=== PATIENT | male | born 1965 | race Caucasian/White ===

== ENCOUNTER 2018-02-13 06:56 | Inpatient (IN) | payer OTHER ==
[2018-02-13] VITALS (14 sets, daily range): BP systolic 132–154; BP diastolic 87–113
[~2018-02-13] VITALS: Ht 180.3 cm; Wt 78.5 kg
--- NOTE | ~2018-02-13 | EKG ---
[address] [place] [address] ELECTROCARDIOGRAM REPORT Name: ILANA BARNARD Room #: 243-P ADM IN M.R.#: [id number] Admission: 02/13/18 Attend Phys: Juno Lopez MD Discharge: Date of : 61 Report #: [id number] THIS REPORT FOR: //name// [facility] ED Test Date: 2018-02-13 Test Time: 06:56:30 Pat Name: ILANA BARNARD Department: Room: Gender: M Audio Visual Manager: [facility] : 1965 Requested By: Romeo Varghese Order Number: [id number] MD: Leon Sandoval Measurements Intervals [place] Rate: 58 P: 42 NC: 171 QRS: 71 QRSD: 126 T: 97 QT: 426 QTc: 419 Interpretive Statements Sinus rhythm Multiple premature complexes, vent & supraven Inferior infarct, acute Compared to ECG 08/24/2001 18:25:22 Ventricular and supraventricular ectopy are present Myocardial infarct finding now present Electronically Signed On 02-14-2018 8:45:41 CDT by Leon Sandoval [email or web address] <ELECTRONICALLY SIGNED> By: Leon Sandoval MD, [facility] 02/14/18 0845 0656 0656 Leon Sandoval MD, [facility] /EPI
--- NOTE | ~2018-02-13 | D ---
[facility] [place] [address] DISCHARGE SUMMARY Name: ILANA BARNARD JR Room #: 208-P [facility] IN M.R.#: [id number] Admission: 02/13/18 Attend Phys: Juno Lopez MD Discharge: 02/15/18 Date of : 61 Report #: [id number] THIS REPORT FOR: //name// CC: SADIA physician/PCP Juno Lopez DATE OF SERVICE: 02/13/2018 FINAL DIAGNOSES: 1. Acute inferior wall myocardial infarction, status post coronary intervention. 2. Atrial fibrillation. 3. Noncompliance. 4. Ischemic cardiomyopathy. 5. Hypertension. 6. Tobacco use. 7. Hypercholesterolemia. HOSPITAL COURSE: The patient presented with an acute inferior wall myocardial infarction. He was taken emergently to the cardiac tailings dam laborer. He was found to have a total occlusion in a stent that was in the mid segment of the RCA. Angioplasty was performed with placement of a drug-eluting stent with protestant of ROSA MARIA 3 blood flow down the RCA and PDA. The PDA had an ostial lesion that was intervened on with a balloon angioplasty. The left circumflex is chronically occluded with distal collaterals. This is unchanged from prior studies. There is a stent in the mid LAD that is patent. The proximal LAD had a borderline stenosis. During the procedure, the rhythm changed to atrial fibrillation, he remained hemodynamically stable. He was transferred to the ICU. He was started on amiodarone as per protocol. However, the rhythm persisted. He did not have any further episodes of chest pains. He has a prior history of stent placement at [facility] and [facility]. However, he has not been compliant with followups or taking any medications. He has a history of tobacco use, hypertension and hypercholesterolemia. He remained stable on the medical floor with no symptoms of angina or dyspnea. His EF was in the 35%-40% range. He was started on losartan. He also was given a nicotine patch as he is trying to quit smoking. FINAL DISPOSITION: Eliquis 5 mg twice a day, aspirin 81 mg, Plavix 75 mg daily, [facility] [address] [place] [address] DISCHARGE SUMMARY Name: AKILILANA RUEL Room #: 208-P [facility] IN M.R.#: [id number] Admission: 02/13/18 Attend Phys: Juno Lopez MD Discharge: 02/15/18 Date of : 61 Report #: [id number] atenolol 50 mg twice a day, losartan 25 mg daily, and atorvastatin 40 mg daily. He is given instructions for followup in the office within a week. <ELECTRONICALLY SIGNED> By: Juno Lopez MD 02/16/18 0812 0950 1025 Juno Lopez MD /nt
--- NOTE | ~2018-02-13 | EKG ---
[address] [address] ELECTROCARDIOGRAM REPORT Name: AKILILANA Room #: 208-P [facility] IN M.R.#: [id number] Admission: 02/13/18 Attend Phys: Juno Lopez MD Discharge: 02/15/18 Date of : 61 Report #: [id number] THIS REPORT FOR: //name// [facility] Test Date: 2018-02-15 Test Time: 08:40:43 Pat Name: ILANA BARNARD Department: Room: 208 Gender: M Marketing Executive: VANDANA : 1965 Requested By: Juno Lopez Order Number: [id number] MD: Juno Lopez Measurements Intervals [place] Rate: 101 P: HI: QRS: 40 QRSD: 114 T: -63 QT: 382 QTc: 496 Interpretive Statements Atrial fibrillation Inferior infarct, age indeterminate Compared to ECG 02/14/2018 08:25:47 Left ventricular hypertrophy no longer present Prolonged QT interval no longer present Myocardial infarct finding still present Electronically Signed On 02-16-2018 10:18:53 ELECTROCARDIOGRAPHIC TECHNICIAN by Juno Lopez [email or web address] <ELECTRONICALLY SIGNED> By: Juno Lopez MD 02/16/18 1018 9 9 Juno Lopez MD /MAYITO
--- NOTE | ~2018-02-13 | CATHLAB ---
[facility] [place] [address] INVASIVE PROCEDURE REPORT Name: ILANA BARNARD Room #: 243-P ADM IN .R.#: [id number] Admission: 02/13/18 Attend Phys: Juno Lopez MD Discharge: Date of : 61 Date of Service: 02/13/18 1031 Report #: [id number] THIS REPORT FOR: //name// APPROVED REPORT Study performed: 02/13/2018 07:24:47 Patient Details Patient Status: ED Room #: The patient is a 53 year-old male Event Personnel Juno Lopez,Correctional Supervising Cook, , Brock Wilhelm RN RN, Yemi Bill RN, Jose Gerber, Lizzette Chambers Monitor Procedures Performed Art Access - R femoral artery* SKYLER Revasc AMI Total/Sub Single RCA C9606 AMIREVSING Left Heart Cath w/or w/o Coronaries [id number] [facility] [address] Initial Mod Sed Same Phys/QHP Gr5y 692276 16321 Mod Sed Same Phys/QHP Ea 095703 Indication STEMI (>0 to less than or equal to 6 hours), Dyspnea, Chest pain Risk Factors Hypercholesterolemia, Coronary Artery DiseaseHypertension, Tobacco History (), The patient was noncompliant with medical therapy. Previous Procedures/Diagnoses Previous PCI Procedure Narrative The Right Groin^ was infiltrated with subcutaneous anesthesia. A PINNACLE 6FR Sheath #[id number] sheath was inserted into the RFA^. Coronary angiography was performed using coronary diagnostic catheters. The right coronary system was accessed and visualized with a jr4 catheter. The left coronary system was accessed and visualized with a jl4 catheter. The left ventricle was accessed and visualized with a angle pig catheter. Left ventriculogram was performed in 30 degree projection. sheath was suttured in place, patient transfered to icu Intraoperative Conscious Sedation [address] [address] INVASIVE PROCEDURE REPORT Name: ILANA BARNARD JR Room #: 243-P [facility] IN ..#: [id number] Admission: 02/13/18 Attend Phys: Juno Lopez MD Discharge: Date of : 61 Date of Service: 02/13/18 1031 Report #: [id number] Sedation start time: 0759 Case end Time: 0830 Fluoro Time: 13.00 minutes Dose: DAP 38254.80 cGycm2 1885 mGy Coronary Angiography The patient's coronary anatomy is right dominant. Diagnostic Cath Left Main Patent vessel, with no flow-limiting lesions. LAD Moderate size caliber vessel, traveling down the anterior wall and wrapping around the apex. There is a stent in the midsegment, patent with minimal restenosis. In the proximal segment, there is a severe focal stenosis, 70%. Diagonal 1 Small-caliber vessel, with no flow-limiting lesions. Diagonal 2 Small-caliber vessel, with no flow-limiting lesions. Circumflex After supplying OM1, there is a total occlusion in the mid segment. The distal marginal is filled via collateral circulation from OM1. OM1 Small to moderate size caliber vessel, patent with no flow-limiting lesions. Supplies collateral circulation to the distal marginal. OM2 Filled via collateral blood flow from OM1. Right Coronary Dominant vessel with a stent in the mid/distal segment with 100% occlusion. Left Ventriculography The left ventricle is mildly dilated in size with decreased contractility. The left ventricular ejection fraction is estimated to be 35-40%. Left ventricular wall motion abnormalities are present. There is hypokinesis of the inferior wall. Hemodynamics The aortic pressure is 183/111 mmHg with a mean of 117 mmHg. The left ventricular pressure is 149/22 mmHg with a mean of mmHg. The left ventricular end diastolic pressure is 31 mmHg. PCI Technique Lesion Percutaneous coronary intervention was performed on the mid right coronary artery. The lesion stenosis prior to intervention was 100% with ROSAM ARIA 0 flow. A jr4 Guide Catheter was used to engage the ostium. A Luge Wire (J) .014 X 182CM #[id number] Interventional Guidewire was used to cross the lesion. [facility] [address] [place] [address] INVASIVE PROCEDURE REPORT Name: ILANA BARNARD Room #: 243-P [facility] IN M.R.#: [id number] Admission: 02/13/18 Attend Phys: Juno Lopez MD Discharge: Date of : 61 Date of Service: 02/13/18 1031 Report #: [id number] BALLOON DILATION A Balloon catheter 2.5x12 Euphora was inserted and inflated up to 8atm for 6seconds. Additional Inflation: 6.00atm for 6seconds. Additional Inflation: 10.00atm for 12seconds. addl. 10atm for 8 sec. Did post injections, went back in with the 2.5x12: 10atm for 12 sec, 14atm for 18 sec. STENT DEPLOYMENT A stent 3.0x15 Resolute gokul skyler stent was inserted and inflated up to 16.00atm for 25seconds. POST STENT DEPLOYMENT BALLOON DILATION A Balloon catheter 3.5x12 NC TREK was inserted and inflated up to 18atm for 20seconds. Final angiography reveals 5 % stenosis with ROSA MARIA 3 flow. COMMENTS 1. During the initial balloon angioplasty, the patient's rhythm changed from sinus to A. fib ablation. He remained hemodynamically stable and was started on amiodarone. 2. After the initial stent deployment, repeat injections revealed a haziness within the stented area. Partly due to an undersized stent that was previously placed. The patient was started on Integrilin at this time. The stent was postdilated with a 3.5 mm noncompliant balloon, up to 18 jesus manuel. After the balloon dilatation, there was no further evidence for thrombus within the stented area. PCI Technique Lesion 2 Percutaneous Coronary Intervention was performed on the right posterior descending artery. The lesion stenosis prior to intervention was 80% with ROSA MARIA 3 flow. Balloon Dilation A Balloon catheter 2.5X12 EUPHORA RX was inserted and inflated up to 8atm for 30seconds. Final angiography reveals 40 % stenosis with ROSA MARIA 3 flow. Conclusion 1. Successful insertion of a drug-eluting stent into the total occlusion in the mid RCA segment, at the site of a previously placed stent. 2. Balloon angioplasty of an ostial PDA stenosis. 3. Patent stent in the mid LAD. There is a 70% stenosis in the [facility] [address] [place] [address] INVASIVE PROCEDURE REPORT Name: ILANA BARNARD JR Room #: 243-P [facility] IN .R.#: [id number] Admission: 02/13/18 Attend Phys: Juno Lopez MD Discharge: Date of : 61 Date of Service: 02/13/18 103 Report #: [id number] proximal LAD segment, consider a staged angioplasty. 4. Total occlusion of the mid left circumflex artery, the distal marginal is filled via collateral circulation. Recommend medical therapy. 5. Moderate ischemic cardiomyopathy. 6. Atrial fibrillation, continue with medical therapy. 7. Recommend dual antiplatelet therapy and aggressive risk factor modification. <ELECTRONICALLY SIGNED> By: Juno Lopez MD 02/13/181030 30 30 Juno Lopez MD /INF
--- NOTE | ~2018-02-13 | H ---
[facility] [place] [address] HISTORY AND PHYSICAL Name: ILANA BARNARD JR Room #: 243-P ADM IN M.R.#: [id number] Admission: 02/13/18 Attend Phys: Juno Lopez MD Discharge: Date of : 61 Report #: [id number] THIS REPORT FOR: //name// CC: SADIA physician/PCP Juno Lopez DATE OF SERVICE: 02/13/2018 INDICATION: Chest pain. HISTORY OF PRESENT ILLNESS: This is a 53-year-old gentleman with a history of CAD, PCI, hypertension, tobacco use, presenting with chest pains. About an hour prior to his presentation, he developed substernal chest pain, radiating down the left arm. He has some dyspnea. There is no history of cough, nausea or diaphoresis. In the ER, he was found to have an acute inferior wall AR. He has not been taking any medication for the past 6 months to 1 year. He has not followed up with his highway commissioner. PAST MEDICAL HISTORY: CAD with stent placement at [facility] and then several years ago at [facility]. History of hypertension, hypercholesterolemia. History of noncompliance. ALLERGIES: None. MEDICATIONS: None. SOCIAL HISTORY: Positive tobacco use, at least 1 pack per day. FAMILY HISTORY: Negative for premature CAD. REVIEW OF SYSTEMS: As outlined above in the HPI. PHYSICAL EXAMINATION: VITAL SIGNS: Blood pressure is 150/60, heart rate is 80 beats per minute. GENERAL APPEARANCE: This is a well-developed, well-nourished male in no respiratory distress. HEENT: Normocephalic, atraumatic. Oral mucosa moist. NECK: Supple. LUNGS: CTA. CARDIAC: Regular rate and rhythm, S1, S2 positive. ABDOMEN: Soft, nontender. EXTREMITIES: No cyanosis, no edema. NEUROLOGIC: Alert and oriented x 3. ECG reveals sinus rhythm, ST elevation in the inferior leads with reciprocal ST depressions in the lateral leads. [facility] [address] [place] [address] HISTORY AND PHYSICAL Name: ILANA BARNARD Room #: 243-P [facility] IN [facility].#: [id number] Admission: 02/13/18 Attend Phys: Juno Lopez MD Discharge: Date of : 61 Report #: [id number] ASSESSMENT AND PLAN: 1. Acute inferior wall myocardial infarction, the patient will be taken emergently to the cardiac labor trainer. He will be given aspirin and antiplatelet therapy. 2. Noncompliance, discussed with him the importance of compliance with medications, especially with his significant cardiac history. 3. Hypertension, reinstitute blood pressure medications. 4. Tobacco use, complete smoking cessation is advised. 5. Hypercholesterolemia, resume statin therapy. <ELECTRONICALLY SIGNED> By: Juno Lopez MD 02/14/18 0805 0836 0923 Juno Lopez MD /nt
--- NOTE | ~2018-02-13 | EKG ---
[address] [address] ELECTROCARDIOGRAM REPORT Name: ILANA BARNARD Room #: 243-P ADM IN M.R.#: [id number] Admission: 02/13/18 Attend Phys: Juno Lopez MD Discharge: Date of : 61 Report #: [id number] THIS REPORT FOR: //name// [facility] Test Date: 2018-02-14 Test Time: 08:25:47 Pat Name: ILANA BARNARD Department: Room: 243 P Gender: M Broth Setter: GR : 1965 Requested By: Juno Lopez Order Number: [id number] MD: Leon Sandoval Measurements Intervals [place] Rate: 112 P: NM: QRS: 33 QRSD: 104 T: -62 QT: 368 QTc: 503 Interpretive Statements Atrial fibrillation Left ventricular hypertrophy Inferoposterior infarct, recent Prolonged QT interval Compared to ECG 08/24/2001 18:25:22 Evolutionary changes of an inferior infarct Electronically Signed On 02-14-2018 9:04:56 CDT by Leon Sandoval [email or web address] <ELECTRONICALLY SIGNED> By: Leon Sandoval MD, [facility] 02/14/18 0904 4 4 Leon Sandoval MD, [facility] /EPI
[2018-02-13] MEDS ORDERED: NOHOMEMEDICATIONS (07:09)
[2018-02-13 07:11] LABS: ABSOLUTE NEUTROPHILS 5.8 thou/uL (1.4-8.2); BASOPHILS 1.1 % (0.0-2.0); EOSINOPHILS 2.9 % (0.0-3.0); HEMATOCRIT 45.7 % (42.0-52.0); HEMOGLOBIN 15.7 gm/dL (14.0-18.0); LYMPHOCYTES 35.6 % (24.0-44.0); MCH 31.4 pg (26.0-34.0); MCHC 34.3 g/dL (28.0-37.0); MCV 91.4 fL (80.0-100.0); MONOCYTES 10.3 % (1.0-8.0); PLATELET COUNT 340 thou/uL (150-400); POLYS 50.1 % (36.0-66.0); RDW 14.5 % (10.5-14.5); WBC 11.5 thou/uL (4.0-11.0)
[2018-02-13 07:24] LABS: ANION GAP 14 mmol/L (7-16); BUN 16 mg/dL (7-18); CALCIUM 9.6 mg/dL (8.5-10.1); CHLORIDE 103 mmol/L (98-107); CO2 23 mmol/L (21-32); CREATININE 1.2 mg/dL (0.7-1.3); GLUCOSE 157 mg/dL (74-106); POTASSIUM 3.5 mmol/L (3.5-5.1); SODIUM 140 mmol/L (136-145)
[2018-02-13 07:34] LABS: TROPONIN-I <0.06 ng/mL (<0.06)
[2018-02-14] VITALS (7 sets, daily range): BP systolic 106–127; BP diastolic 68–88
[2018-02-14 05:06] LABS: HEMATOCRIT 40.7 % (42.0-52.0); HEMOGLOBIN 13.8 gm/dL (14.0-18.0); MCH 30.9 pg (26.0-34.0); RBC 4.48 mil/uL (4.50-6.00); RDW 14.5 % (10.5-14.5); WBC 10.2 thou/uL (4.0-11.0)
[2018-02-14 05:14] LABS: CALCIUM 8.9 mg/dL (8.5-10.1); POTASSIUM 4.2 mmol/L (3.5-5.1)
[2018-02-14 05:22] LABS: ALBUMIN 2.7 g/dL (3.4-5.0); TOTAL BILIRUBIN 0.4 mg/dL (<0.1-1.0); TOTAL PROTEIN 6.2 g/dL (6.4-8.2)
[2018-02-14 05:26] LABS: TROPONIN-I 55.39 ng/mL (<0.06)
[2018-02-15 00:05] VITALS: BP 101/79
[2018-02-15 04:18] VITALS: BP 112/86
[2018-02-15 05:28] LABS: CALCIUM 8.8 mg/dL (8.5-10.1)
[2018-02-15 07:44] VITALS: BP 108/70
[2018-02-15] MEDS ORDERED: NICOTINE TRANSD21 M1 TRANSDERM (09:37)
[2018-02-15] MEDS ORDERED: ELIQUIS5 MG PO (09:38)
[2018-02-15] MEDS ORDERED: CLOPIDOGREL75 MG PO (09:38)
[2018-02-15] MEDS ORDERED: ATENOLOL 50MG T50 MG PO (09:39)
[2018-02-15] MEDS ORDERED: ATORVASTATIN CA80 MG PO (09:39)
[2018-02-15] MEDS ORDERED: COZAAR 25 MG TA25 M1 PO (09:39)
[2018-02-15] MEDS ORDERED: ASPIR 8181 MG PO (09:40)
[2018-02-15 10:42] VITALS: BP 108/70
== END 2018-02-15 11:34 | disposition home or self-care (01) | DRG 247 ==
LOC: ER 06:56 → ICU 09:03 → 2N 02-14 16:45
PROVIDERS: Emergency Medicine; Internal Medicine Cardiovascular Disease
DX: I21.19 ST elevation (STEMI) myocardial infarction involving other coronary artery of inferior wall (principal); F17.210 Nicotine dependence, cigarettes, uncomplicated; I48.91 Unspecified atrial fibrillation; I25.5 Ischemic cardiomyopathy; I10 Essential (primary) hypertension; I25.10 Atherosclerotic heart disease of native coronary artery without angina pectoris; E78.00 Pure hypercholesterolemia, unspecified; Z95.5 Presence of coronary angioplasty implant and graft; Z82.49 Family history of ischemic heart disease and other diseases of the circulatory system; Z91.14 Patient's other noncompliance with medication regimen; Z79.82 Long term (current) use of aspirin; Z79.899 Other long term (current) drug therapy; Z28.21 Immunization not carried out because of patient refusal
CPT/HCPCS: 10078; 10081

== ENCOUNTER 2018-05-01 07:50 | Outpatient (CLI) | payer OTHER ==
[~2018-05-01] VITALS: Ht 180.3 cm; Wt 78.0 kg
[~2018-05-01 07:50] MED LIST: ASPIR 8181 MG PO; ATENOLOL 50MG T50 MG PO; ATORVASTATIN CA80 MG PO; CLOPIDOGREL75 MG PO; COZAAR 25 MG TA25 M1 PO; ELIQUIS5 MG PO; NICOTINE TRANSD21 M1 TRANSDERM; NOHOMEMEDICATIONS
[2018-05-01 08:03] VITALS: BP 132/77
[2018-05-01 08:20] LABS: HEMATOCRIT 42.4 % (42.0-52.0); HEMOGLOBIN 14.2 gm/dL (14.0-18.0); MCH 30.4 pg (26.0-34.0); MCHC 33.6 g/dL (28.0-37.0); MCV 90.7 fL (80.0-100.0); RBC 4.68 mil/uL (4.50-6.00); RDW 14.6 % (10.5-14.5); WBC 5.3 thou/uL (4.0-11.0)
[2018-05-01] MEDS ORDERED: TOPROL XL100 MG PO (08:21)
--- NOTE | 2018-05-01 08:25 | EKG ---
[address] [address] ELECTROCARDIOGRAM REPORT Name: ILANA BARNARD Room #: REG CLI [facility].#: [id number] Admission: 05/01/18 Attend Phys: Juno Lopez MD Discharge: Date of : 61 Report #: [id number] THIS REPORT FOR: //name// [facility] Test Date: 2018-05-01 Test Time: 08:08:34 Pat Name: ILANA BARNARD Department: Room: Gender: M Product Consultant: : 1965 Requested By: Juno Lopez Order Number: [id number] MD: Leon Sandoval Measurements Intervals [place] Rate: 58 P: 54 CO: 147 QRS: 29 QRSD: 101 T: -22 QT: 409 QTc: 402 Interpretive Statements Sinus bradycardia Inferior infarct, age indeterminate Compared to ECG 02/15/2018 08:40:43 Atrial fibrillation no longer present Electronically Signed On 05-01-2018 8:25:28 COAT CHECK ATTENDANT by Leon Sandoval [email or web address] <ELECTRONICALLY SIGNED> By: Leon Sandoval MD, [facility] 05/01/18 0825 0808 7 Leon Sandoval MD, [facility] /EPI
[2018-05-01 08:27] LABS: CALCIUM 9.4 mg/dL (8.5-10.1); POTASSIUM 4.3 mmol/L (3.5-5.1)
[2018-05-01 08:33] LABS: PROTIME 10.5 Seconds (9.3-11.4)
--- NOTE | 2018-05-01 16:02 | NUR ---
PT TO THE UNIT POST CARDIAC CATH, PATIENT HAD STENT TO MID LAD. VSS AND GROIN SITE STABLE - PT OFF BEDREST AND IS SITTING ON SIDE OF BED AND GROIN REMAINS STABLE. NO CO'S OF PAIN OR NAUSEA. JULIA DIET AND FLUIDS. WILL BE SEEN BY CARDIAC REHAB IN THE AM . AT THE BEDSIDE - NO CO'S AT THE PRESENT TIME.
--- NOTE | 2018-05-01 16:13 | CATHLAB ---
[facility] [place] [address] INVASIVE PROCEDURE REPORT Name: AKILILANA RUEL FERNANDEZ Room #: 201-P [facility] [id number] Admission: 05/01/18 Attend Phys: Juno Lopez MD Discharge: Date of : 61 Date of Service: 05/01/18 1613 Report #: [id number] THIS REPORT FOR: //name// APPROVED REPORT Study performed: 05/01/2018 09:14:22 Patient Details Patient Status: Out-Patient Room #: The patient is a 53 year-old male Event Personnel uJno Lopez Consulting Database Administrator, Latonia Nino RN RN, Monica Dahl Sandifer, David Monitor Procedures Performed Left Heart Cath w/or w/o Coronaries [id number] [facility] Place w/wo Plasty Single LAD 027029 Indication Dyspnea, Chest pain Risk Factors Hypercholesterolemia, Coronary Artery DiseaseHypertension Previous Procedures/Diagnoses Previous PCI, Previous ND Procedure Narrative The Right Groin^ was infiltrated with 1% Lidocaine subcutaneous anesthesia. A PINNACLE 4FR Sheath #[id number] sheath was inserted into the RFA^. Coronary angiography was performed using coronary diagnostic catheters. The right coronary system was accessed and visualized with a 4FR JR 4 #[id number] catheter. The left coronary system was accessed and visualized with a 4FR JL 5.0 #[id number] catheter. The left ventricle was accessed and visualized with a 4FR PIGTAIL 145 ANGLED #[id number] catheter. Left ventricular/Aortic Valve gradient assessed via catheter pullback. Left ventriculogram was performed in 30 degree projection. Closure device was deployed with a 6 Fr MYNXGRIP 6/7F #[id number]. The patient tolerated the procedure well and there were no complications associated with the procedure. There was no hematoma. Intraoperative Conscious Sedation Sedation start time: 9. Case end Time: [facility] [address] [place] [address] [place] [address] INVASIVE PROCEDURE REPORT Name: ILANA BARNARD Room #: 201-P [facility]#: [id number] Admission: 05/01/18 Attend Phys: Juno Lopez MD Discharge: Date of : 61 Date of Service: 05/01/18 1613 Report #: [id number] 10.36 Fentanyl 50 mcg Fluoro Time: 8.45 minutes Dose: DAP 7007 cGycm2 932 mGy Contrast Type and Amount: Omnipaque 200 ml Coronary Angiography The patient's coronary anatomy is right dominant. Diagnostic Cath Left Main This is a patent vessel, with no flow-limiting lesions. LAD There is a severe, discrete stenosis in the proximal segment, 75%. There is a previously placed stent in the midsegment, patent with mild restenosis. Diagonal 1 This is a patent vessel, with no flow-limiting lesions. Diagonal 2 This is a patent vessel, with no flow-limiting lesions. Circumflex This vessel supplies one OM vessel before it is totally occluded in the mid segment. The distal left circumflex artery is filled via collateral circulation from bridging collaterals from OM1 and RPL branches. OM1 Has a high takeoff of the left circumflex artery, patent with no flow-limiting lesions. The distal segment supplies collateral circulation to OM 2. OM2 Filled via collateral circulation from OM1 and RPL arteries. Right Coronary This is a dominant vessel with a stent in the proximal segment, patent with mild restenosis. There is a stent at the distal segment, patent. R PDA This is a moderate size caliber vessel, with mild disease at the proximal segment, 30%. RPLV There are several RPL branches, patent with no flow-limiting lesions. Left Ventriculography The left ventricle is mildly dilated in size with decreased contractility. The left ventricular ejection fraction is estimated to be 40%. There is hypokinesis of the inferior wall. Hemodynamics The aortic pressure is 123/71 mmHg with a mean of 89 mmHg. The left ventricular pressure is 132/8 mmHg with a mean of mmHg. The left ventricular end diastolic pressure is 22 mmHg. There was no gradient [facility] [address] [place] [address] INVASIVE PROCEDURE REPORT Name: ILANA BARNARD Room #: 201-P REG M.R.#: [id number] Admission: 05/01/18 Attend Phys: Juno Lopez MD Discharge: Date of : 61 Date of Service: 05/01/18 1613 Report #: [id number] across the aortic valve upon pullback. Pullback from the left ventricle to the aorta revealed no gradient across the aortic valve. PCI Technique Lesion Percutaneous coronary intervention was performed on the proximal left anterior descending artery segment. The lesion stenosis prior to intervention was 75% with ROSA MARIA 3 flow. A VISTA 6FR XB 4.5 #[id number] Guide Catheter was used to engage the ostium. A Luge Wire .014 x 182CM #[id number] Interventional Guidewire was used to cross the lesion. BALLOON DILATION A Balloon catheter MOZEC RX 2.50 X 09 #[id number] was inserted and inflated up to 8.00atm for 12seconds. STENT DEPLOYMENT A drug-eluting stent 2.75mm x 12mm EluNir RX was inserted and inflated up to 18.00atm for 24seconds. POST STENT DEPLOYMENT BALLOON DILATION A Balloon catheter OnavoEC NC RX 3.00 X 08 #[id number] was inserted and inflated up to 18.00atm for 16seconds. Final angiography reveals 0 % stenosis with ROSA MARIA 3 flow. Conclusion 1. Successful insertion of a drug-eluting stent into the proximal LAD stenosis. 2. Patent stents in the mid LAD, mid RCA and distal RCA. 3. Totally occluded mid circumflex with collateral filling, recommend medical therapy. 4. Moderate segmental LV dysfunction. 5. Recommend dual antiplatelet therapy and aggressive risk factor management. <ELECTRONICALLY SIGNED> By: Juno Lopez MD 05/01/18 1613 12 161 Juno Lopez MD /INF
--- NOTE | 2018-05-01 16:41 | EKG ---
[address] [facility] [place] [address] ELECTROCARDIOGRAM REPORT Name: ILANA BARNARD Room #: 201-P [facility]#: [id number] Admission: 05/01/18 Attend Phys: Juno Lopez MD Discharge: Date of : 61 Report #: [id number] THIS REPORT FOR: //name// [facility] Test Date: 2018-05-01 Test Time: 13:50:24 Pat Name: ILANA BARNARD Department: Room: Gender: M Corporate Logistics Manager: Robby CRESPO : 1965 Requested By: Juno Lopez Order Number: [id number] MD: George Quinn Measurements Intervals [place] Rate: 66 P: 59 OR: 150 QRS: 44 QRSD: 109 T: -47 QT: 420 QTc: 441 Interpretive Statements Sinus rhythm Probable left ventricular hypertrophy Inferior infarct, age indeterminate Compared to ECG 05/01/2018 08:08:34 Sinus bradycardia no longer present Myocardial infarct finding still present Electronically Signed On 05-01-2018 16:41:12 WEB MARKETING MANAGER by George Quinn [email or web address] <ELECTRONICALLY SIGNED> By: George Quinn MD 05/01/18 1641 1350 1350 George Quinn MD /EPI
[2018-05-01 19:07] VITALS: BP 119/67
[2018-05-02 00:21] VITALS: BP 113/72
[2018-05-02 04:40] VITALS: BP 128/75
--- NOTE | 2018-05-02 04:41 | NUR ---
ASSUMED PT CARE AT 1900. VSS. PT A&OX4. ASSESSMENTS ARE CHARTED. PT'S CATH SITE IS CDI. NO COMPLAINTS OF PAIN. SOME TENDERNESS REPORTED BY PT, DENIES NEED FOR TYLENOL. PT ADVISED TO QUIT SMOKING. PT HAS BEEN STABLE ALL NIGHT. NO DISTRESS NOTED. PT SLEPT WELL ALL NIGHT. SHOULD D/C TO HOME TODAY.
[2018-05-02 05:18] LABS: HEMATOCRIT 42.8 % (42.0-52.0); HEMOGLOBIN 14.1 gm/dL (14.0-18.0); MCH 29.9 pg (26.0-34.0); MCV 90.7 fL (80.0-100.0); RBC 4.72 mil/uL (4.50-6.00); RDW 14.2 % (10.5-14.5); WBC 6.6 thou/uL (4.0-11.0)
[2018-05-02 05:38] LABS: ALBUMIN 3.3 g/dL (3.4-5.0); CALCIUM 9.2 mg/dL (8.5-10.1); POTASSIUM 4.5 mmol/L (3.5-5.1); TOTAL BILIRUBIN 0.4 mg/dL (<0.1-1.0); TOTAL PROTEIN 6.8 g/dL (6.4-8.2); TROPONIN-I 0.16 ng/mL (<0.06)
[2018-05-02 07:10] VITALS: BP 117/75
[2018-05-02 08:30] VITALS: BP 117/75
--- NOTE | 2018-05-02 08:42 | D ---
[facility] [place] [address] DISCHARGE SUMMARY Name: ILANA BARNARD JR Room #: 201[facility]P [facility] [id number] Admission: 05/01/18 Attend Phys: Juno Lopez MD Discharge: Date of : 61 Report #: [id number] THIS REPORT FOR: //name// CC: Juno Donato DATE OF SERVICE: 05/02/2018 FINAL DIAGNOSES: 1. Coronary artery disease, status post coronary intervention. 2. History of myocardial infarction. 3. Hypertension. 4. Hypercholesterolemia. 5. Paroxysmal atrial fibrillation. 6. Ischemic cardiomyopathy. 7. Tobacco use. HOSPITAL COURSE: Please see the original H and P for full details. The patient has a prior history of an HI with stent insertion. During that HI presentation, he did convert to atrial fibrillation in the Survey Compiler. He remained with his arrhythmia during that hospitalization. Eventually, he converted to sinus rhythm. He did report having fatigue and dyspnea with exertion, anginal equivalent. Please see the cardiac catheterization report for full details. The stent in the RCA is widely patent. There was a severe occlusion of 75% in the proximal LAD, undergoing stent insertion with a drug-eluting stent. He has remained hemodynamically stable overnight. He denies any further episodes of fatigue, dyspnea or angina. I had a long discussion with him regarding his antiplatelet and anticoagulation therapy. The plan is to continue on Plavix and Eliquis 5 mg b.i.d. Aspirin will be discontinued. He will continue with Lipitor 80 mg, Toprol-XL and losartan. He is given instructions for followup in the office. <ELECTRONICALLY SIGNED> By: Juno Lopez MD 05/02/1842 8 Juno Lopez MD /nt
--- NOTE | 2018-05-02 08:55 | EKG ---
[address] [address] ELECTROCARDIOGRAM REPORT Name: ILANA BARNARD Room #: 201-P [facility].#: [id number] Admission: 05/01/18 Attend Phys: Juno Lopez MD Discharge: Date of : 61 Report #: [id number] THIS REPORT FOR: //name// [facility] Test Date: 2018-05-02 Test Time: 07:41:19 Pat Name: ILANA BARNARD Department: Room: 201 P Gender: M Manufacturing Quality Engineer: MARIELA : 1965 Requested By: Juno Lopez Order Number: [id number] MD: Leon Sandoval Measurements Intervals [place] Rate: 54 P: 36 [place]: 141 QRS: 27 QRSD: 111 T: -17 QT: 447 QTc: 424 Interpretive Statements Sinus rhythm Left ventricular hypertrophy Inferior infarct, age indeterminate Compared to ECG 05/01/2018 13:50:24 No significant changes Electronically Signed On 05-02-2018 8:54:51 PRISM INSPECTOR by Leon Sandoval [email or web address] <ELECTRONICALLY SIGNED> By: Leon Sandoval MD, [facility] 05/02/18 0854 0741 0 Leon Sandoval MD, FACC /EPI
--- NOTE | 2018-05-02 09:02 | NUR ---
ASSESSMENT CHARTED - MEDS PER MAR - NO CO'S OF PAIN OR NAUSEA. JULIA DIET AND FLUIDS. UP AD JAN IN ROOM. PT HOME THIS AM - INSTRUCTION RE HOME MEDS/ CARE AND FOLLOW GIVEN - STATED UNDERSTANDING OF INSTRUCTION GIVEN - SEEN BY CARDIAC REHAB PRIOR TO D/C. MONITOR AND IV REMOVED. LEFT UNIT VIA WHEELCHAIR HOME VIA PVT VEHICLE ACCOMPANIED BY - NO CO'S AT TIME OF D/C.
== END 2018-05-02 08:50 | disposition home or self-care (01) ==
LOC: CATH 07:50 → 2N 11:36 → CATH 13:27
PROVIDERS: Internal Medicine Cardiovascular Disease
DX: I25.10 Atherosclerotic heart disease of native coronary artery without angina pectoris (principal); I11.0 Hypertensive heart disease with heart failure; I50.1 Left ventricular failure, unspecified; E78.00 Pure hypercholesterolemia, unspecified; I42.9 Cardiomyopathy, unspecified; E78.5 Hyperlipidemia, unspecified; I25.2 Old myocardial infarction; I48.91 Unspecified atrial fibrillation; F17.210 Nicotine dependence, cigarettes, uncomplicated; Z95.5 Presence of coronary angioplasty implant and graft; Z82.49 Family history of ischemic heart disease and other diseases of the circulatory system; Z79.899 Other long term (current) drug therapy; Z79.01 Long term (current) use of anticoagulants
CPT/HCPCS: 10081

== ENCOUNTER → 2019-07-27 | Outpatient (CLI) | payer OTHER ==
[~2019-07-27] MED LIST changes: +TOPROL XL100 MG PO
== END ==
LOC: SJCVCIMAG 07:29
DX: R94.31 Abnormal electrocardiogram [ECG] [EKG] (principal); I44.7 Left bundle-branch block, unspecified; I25.10 Atherosclerotic heart disease of native coronary artery without angina pectoris; I25.5 Ischemic cardiomyopathy; F17.210 Nicotine dependence, cigarettes, uncomplicated; Z86.79 Personal history of other diseases of the circulatory system; Z79.899 Other long term (current) drug therapy

== ENCOUNTER → 2019-08-03 | Outpatient (CLI) | payer OTHER ==
[~2019-08-03] VITALS: Ht 180.3 cm; Wt 73.5 kg
[~2019-08-03] MED LIST changes: +ADULT ASPIRIN R81 MG PO; +CARVEDILOL12.5 MG PO; +COZAAR 50 MG TA50 M1 PO; +NITROSTAT0.4 M1 SUBLING
[2019-08-03 07:18] LABS: HEMATOCRIT 45.3 % (42.0-52.0); HEMOGLOBIN 15.1 gm/dL (14.0-18.0); MCH 31.3 pg (26.0-34.0); MCHC 33.3 g/dL (28.0-37.0); MCV 94.1 fL (80.0-100.0); RBC 4.81 mil/uL (4.50-6.00); RDW 14.3 % (10.5-14.5); WBC 8.1 thou/uL (4.0-11.0)
[2019-08-03 07:23] VITALS: BP 119/66
[2019-08-03 07:28] LABS: POTASSIUM 4.5 mmol/L (3.5-5.1)
--- NOTE | 2019-08-03 08:51 | EKG ---
[facility] [place] [address] ELECTROCARDIOGRAM REPORT Name: ILANA BARNARD [id number] Admission: 08/03/19 Attend Phys: Juno Lopez MD Discharge: Date of : 61 Report #: [id number] THIS REPORT FOR: cc: Kinga Cho,Patrick Donato Jr.,Leon Mayfield MD, MD [facility] ~ THIS REPORT FOR: //name// [facility] Test Date: 2019-08-03 Test Time: 07:12:56 Pat Name: ILANA BARNARD Department: Room: Gender: M Financial Services Sales Representative: VANDANA : 1965 Requested By: Juno Lopez Order Number: [id number] MD: Leon Sandoval Measurements Intervals [place] Rate: 59 P: 44 [place]: 151 QRS: 37 QRSD: 104 T: -2 QT: 426 QTc: 422 Interpretive Statements Sinus rhythm Poor R wave progression Inferior infarct, age indeterminant Compared to ECG 05/02/2018 07:41:19 No significant changes Electronically Signed On 08-03-2019 8:49:33 CDT by Leon Sandoval [email or web address] <ELECTRONICALLY SIGNED> By: Leon Sandoval MD, [facility] 08/03/19 0849 1 1 Leon Sandoval MD, [facility] /EPI
--- NOTE | 2019-08-03 12:58 | CATHLAB ---
[facility] [place] [address] INVASIVE PROCEDURE REPORT Name: AKILILANA LIPSCOMB JR [id number] Admission: 08/03/19 Attend Phys: Juno Lopez MD Discharge: Date of : 61 Report #: [id number] THIS REPORT FOR: cc: Kinga Cho,Patrick Lazaro MD, Jr., MD, Jin S. MD ~ APPROVED REPORT Study performed: 08/03/2019 07:58:04 Patient Details Patient Status: Out-Patient Room #: The patient is a 54 year-old male Event Personnel Juno Lopez Country Director, Kari Landrum RN RN, Miriam Lombardo RTR Monitor, No Fleming RTR Scrub, Damian Gallagher, RDCS Cash Control Specialist Procedures Performed Art Access - R femoral artery* Left Heart Cath w/or w/o Coronaries [id number] [facility] Hemostasis with Manual pressure 56624 Initial Mod Sed Same Phys/QHP Gr5y [id number] 14126 Mod Sed Same Phys/QHP Ea 956662 Indication Dyspnea, Positive stress test Risk Factors Hypercholesterolemia, Coronary Artery DiseaseHypertension, Tobacco History () Previous Procedures/Diagnoses Previous PCI, Previous TN Procedure Narrative The patient was brought electively to the Cardiac Catheterization Laboratory and was prepped and draped in a sterile manner. The Right Groin^ was infiltrated with 1% Lidocaine subcutaneous anesthesia. A PINNACLE 4FR Sheath #[id number] sheath was inserted into the RFA^. Coronary angiography was performed using coronary diagnostic catheters. The right coronary system was accessed and visualized with a JR4 catheter. The left coronary system was accessed and visualized with a JL5 catheter. The left ventricle was accessed and visualized [facility] [place] [address] INVASIVE PROCEDURE REPORT Name: ILANA BARNARD JR Room #: REG [facility]#: [id number] Admission: 08/03/19 Attend Phys: Juno Lopez MD Discharge: Date of : 61 Report #: [id number] with a PIGTAIL catheter. Hemostasis was obtained with manual pressure following sheath removal without any complications. The patient tolerated the procedure well and there were no complications associated with the procedure. There was no hematoma. Intraoperative Conscious Sedation Sedation start time: 8:22 Case end Time: 9:05 Fentanyl 50 mcg Fluoro Time: 3.90 minutes Dose: DAP 5653.00 cGycm2 942 mGy Contrast Type and Amount: Omnipaque 85 ml Coronary Angiography The patient's coronary anatomy is right dominant. Diagnostic Cath Left Main This is a large caliber vessel, patent with no flow-limiting lesions. LAD There are patent stents in the proximal and mid segment of the LAD, with mild restenosis. Diagonal 1 This is a small-caliber vessel, patent with no flow-limiting lesions. Circumflex After giving off a moderate size OM1 vessel, there is a total occlusion in the proximal circumflex. The distal circumflex is filled via collaterals from OM1. This is unchanged from prior procedures. OM1 This is a patent vessel, with no flow-limiting lesions. OM2 This vessel is filled via collateral circulation from OM1. Right Coronary There are patent stents in the mid and distal segments of the RCA with mild restenosis. Within the proximal stent there is a borderline restenotic lesion, 50-70%. Recommend medical therapy. R PDA There is a moderate size caliber vessel with mild disease in the ostium, 30%. RPLV This is a patent vessel, with no flow-limiting lesions. Left Ventriculography The left ventricle is normal in size with abnormal contractility. The left ventricular ejection fraction is estimated to be 40-45%. Left ventricular wall motion abnormalities are present. There is hypokinesis of the inferior wall. Hemodynamics The aortic pressure is 108/67 mmHg with a mean of 84 mmHg. The left ventricular pressure is 112/10 mmHg with a mean of mmHg. The left [facility] [address] [place] [address] INVASIVE PROCEDURE REPORT Name: ILANA BARNARD Room #: REG ON LICENSE OF [facility].#: [id number] Admission: 08/03/19 Attend Phys: Juno Lopez MD Discharge: Date of : 61 Report #: [id number] ventricular end diastolic pressure is 14 mmHg. Conclusion 1. There are patent stents in the LAD and RCA. 2. There is a borderline restenotic lesion in the mid RCA stent. Recommend medical therapy. 3. Mild to moderate segmental LV dysfunction. 4. Occluded left circumflex with distal collateral filling. Unchanged from prior procedures, medical therapy is recommended. 5. Recommend aggressive risk factor management. <ELECTRONICALLY SIGNED> By: Juno Lopez MD 08/03/19 1257 1257 1257 Juno Lopez MD /INF
== END | disposition home or self-care (01) ==
LOC: CATH 06:34
PROVIDERS: Internal Medicine Cardiovascular Disease
DX: R94.39 Abnormal result of other cardiovascular function study (principal); R06.00 Dyspnea, unspecified; I25.10 Atherosclerotic heart disease of native coronary artery without angina pectoris; I11.0 Hypertensive heart disease with heart failure; I50.1 Left ventricular failure, unspecified; E78.00 Pure hypercholesterolemia, unspecified; I25.5 Ischemic cardiomyopathy; I48.91 Unspecified atrial fibrillation; I25.2 Old myocardial infarction; E78.5 Hyperlipidemia, unspecified; K21.9 Gastro-esophageal reflux disease without esophagitis; F17.210 Nicotine dependence, cigarettes, uncomplicated; Z98.890 Other specified postprocedural states; Z79.899 Other long term (current) drug therapy; Z79.01 Long term (current) use of anticoagulants; Z79.82 Long term (current) use of aspirin